=== PATIENT | female | born 1945 | race Caucasian/White ===

== ENCOUNTER 2016-10-09 06:39 | Day surgery (SDC) | payer MEDICARE, OTHER ==
[~2016-10-09] VITALS: Ht 162.6 cm; Wt 63.7 kg
[2016-11-16] MEDS ORDERED: DIVALPROEX SOD250 MG PO (18:53)
[2016-11-16] MEDS ORDERED: AMLODIPINE BESYL5 MG PO (18:53)
[2016-11-16] MEDS ORDERED: EFFEXOR XR150 MG PO (18:53)
[2016-11-16] MEDS ORDERED: MUCINEX600 MG PO (18:54)
[2016-11-16] MEDS ORDERED: POTASSIUM CHLO20 ME2 PO (18:54)
[2016-11-16] MEDS ORDERED: GABAPENTIN100 MG PO (18:54)
[2016-11-16] MEDS ORDERED: MIRALAX PACKET17 GM PO (18:54)
[2016-11-16] MEDS ORDERED: SENOKOT S1 TAB PO (18:55)
[2016-11-16] MEDS ORDERED: DUONEB DPS3 ML IH ×2 (18:55→18:56)
[2016-11-16] MEDS ORDERED: TYLENOL EXTRA500 M1 PO (18:55)
[2016-11-16] MEDS ORDERED: SEROQUEL25 MG PO (18:55)
[2016-11-16] MEDS ORDERED: DURAGESIC1 EAC1 TP (18:57)
[2016-11-16] MEDS ORDERED: LIDOPATCH1 EACH TP (18:59)
[2016-11-16] MEDS ORDERED: COMPAZINE10 MG PO (19:00)
[2016-11-16] MEDS ORDERED: BENADRYL-DPS25 MG PO (19:00)
[2016-11-16] MEDS ORDERED: OXY IR DPS5 MG PO (19:00)
[2016-11-16] MEDS ORDERED: MAALOX DPS30 ML PO (19:00)
[2016-11-16] MEDS ORDERED: XANAX DPS0.25 MG PO (19:01)
[2016-11-16] MEDS ORDERED: MAG-OX400 MG PO (19:02)
== END 2016-10-09 10:30 | disposition home or self-care (01) ==
LOC: RAD.S 06:39 → EDSTATUS 08:00 → RAD.S 10:30
PROC: 0BBG3ZX Excision of Left Upper Lung Lobe, Percutaneous Approach, Diagnostic (ICD-10-PCS; principal; 2016-10-09)
DX: R91.8 Other nonspecific abnormal finding of lung field (principal); G89.29 Other chronic pain; I10 Essential (primary) hypertension; K21.9 Gastro-esophageal reflux disease without esophagitis; E78.5 Hyperlipidemia, unspecified; M18.0 Bilateral primary osteoarthritis of first carpometacarpal joints; G25.81 Restless legs syndrome; F32.9 Major depressive disorder, single episode, unspecified; Z90.710 Acquired absence of both cervix and uterus; Z98.890 Other specified postprocedural states; Z88.0 Allergy status to penicillin; Z88.6 Allergy status to analgesic agent; Z79.899 Other long term (current) drug therapy; Z88.8 Allergy status to other drugs, medicaments and biological substances; Z88.3 Allergy status to other anti-infective agents

== ENCOUNTER → 2016-10-15 | Outpatient (CLI) | payer MEDICARE, OTHER ==
[~2016-10-15] MED LIST: AMLODIPINE BESYL5 MG PO; BENADRYL-DPS25 MG PO; COMPAZINE10 MG PO; DIVALPROEX SOD250 MG PO; DUONEB DPS3 ML IH; DURAGESIC1 EAC1 TP; EFFEXOR XR150 MG PO; GABAPENTIN100 MG PO; LIDOPATCH1 EACH TP; MAALOX DPS30 ML PO; MAG-OX400 MG PO; MIRALAX PACKET17 GM PO; MUCINEX600 MG PO; OXY IR DPS5 MG PO; POTASSIUM CHLO20 ME2 PO; SENOKOT S1 TAB PO; SEROQUEL25 MG PO; TYLENOL EXTRA500 M1 PO; XANAX DPS0.25 MG PO
== END | disposition home or self-care (01) ==
LOC: RESC 14:56
DX: R91.8 Other nonspecific abnormal finding of lung field (principal)

== ENCOUNTER 2016-10-19 06:26 | Emergency (ER) | payer MEDICARE, OTHER ==
--- NOTE | 2016-10-21 11:45 | ER ---
ADMIT: 10/19/2016 RM/LOC: ER [facility] MR#: [id number] 2620 [facility] [address] [place] [id number] MAHIN VIDES [address] [place], [place] [id number] Emergency Room Report SEX: F AGE: 71 : 1945 DATE: 10/19/2016 ADDENDUM: This is a 71-year-old white female with back pain, acute and also chronic. She also has been diagnosed with a lung mass of unknown etiology recently. CBC, chemistry looks okay. I think this is all basically pain control. I did speak with Dr. Bergeron. She does have a pulmonology appointment here in the near future to consider working this up as a needle biopsy had been performed recently, which I think was equivocal. At this time, she is on Nucynta, this is not helping her. I gave her Dilaudid, she tolerated this. We are going to discharge her home with Zofran 4 mg 1 p.o. q.6 #30 along with Dilaudid 2 mg a half to one p.o. q.6 #[address] Grace, her primary, and/or her chart writer in the near future as well. CONDITION ON DISCHARGE: Good. Sanjay Penaloza MD/ kutris JOB #: [id number] CC: Berto Rai MD, Attending Physician Min Grace MD, Family Physician
[2016-11-16] MEDS ORDERED: EFFEXOR XR150 MG PO (18:53)
[2016-11-16] MEDS ORDERED: AMLODIPINE BESYL5 MG PO (18:53)
[2016-11-16] MEDS ORDERED: DIVALPROEX SOD250 MG PO (18:53)
[2016-11-16] MEDS ORDERED: MUCINEX600 MG PO (18:54)
[2016-11-16] MEDS ORDERED: GABAPENTIN100 MG PO (18:54)
[2016-11-16] MEDS ORDERED: MIRALAX PACKET17 GM PO (18:54)
[2016-11-16] MEDS ORDERED: POTASSIUM CHLO20 ME2 PO (18:54)
[2016-11-16] MEDS ORDERED: SENOKOT S1 TAB PO (18:55)
[2016-11-16] MEDS ORDERED: SEROQUEL25 MG PO (18:55)
[2016-11-16] MEDS ORDERED: TYLENOL EXTRA500 M1 PO (18:55)
[2016-11-16] MEDS ORDERED: DUONEB DPS3 ML IH ×2 (18:55→18:56)
[2016-11-16] MEDS ORDERED: DURAGESIC1 EAC1 TP (18:57)
[2016-11-16] MEDS ORDERED: LIDOPATCH1 EACH TP (18:59)
[2016-11-16] MEDS ORDERED: MAALOX DPS30 ML PO (19:00)
[2016-11-16] MEDS ORDERED: COMPAZINE10 MG PO (19:00)
[2016-11-16] MEDS ORDERED: BENADRYL-DPS25 MG PO (19:00)
[2016-11-16] MEDS ORDERED: OXY IR DPS5 MG PO (19:00)
[2016-11-16] MEDS ORDERED: XANAX DPS0.25 MG PO (19:01)
[2016-11-16] MEDS ORDERED: MAG-OX400 MG PO (19:02)
== END 2016-10-19 09:40 | disposition home or self-care (01) ==
LOC: ER 06:26
DX: M54.9 Dorsalgia, unspecified (principal); G89.29 Other chronic pain; R91.8 Other nonspecific abnormal finding of lung field; I10 Essential (primary) hypertension; E78.5 Hyperlipidemia, unspecified; F17.210 Nicotine dependence, cigarettes, uncomplicated; Z88.0 Allergy status to penicillin; Z88.5 Allergy status to narcotic agent; Z88.6 Allergy status to analgesic agent; Z88.8 Allergy status to other drugs, medicaments and biological substances

== ENCOUNTER 2016-10-28 14:41 | Inpatient (IN) | payer MEDICARE, OTHER ==
[~2016-10-28] VITALS: Ht 162.6 cm; Wt 58.4 kg
--- NOTE | ~2016-10-28 | CO ---
ADMIT: 10/28/2016 RM/LOC: 405 [facility] MR#: [id number] 2620 [facility] [address] [place], [place] [address] MAIHN VIDES [address] [place], [place] [address] Consultation SEX: F AGE: 71 : 1945 DATE OF CONSULTATION: 11/03/2016 ATTENDING PHYSICIAN: Min Grace CONSULTING PHYSICIAN: Michelle Todd MD REASON FOR CONSULTATION: Pain management evaluation. HISTORY: Mrs. Vides is a 71-year-old patient, who I have been seen in the pain clinic for the past 3 years. She has chronic low back pain with occasional leg radiculopathy. Mrs. Vides has undergone a variety of interventional procedures including SI joint injections, lumbar facet injections followed by lumbar rhizotomy procedure as well as lumbar epidurals. The injections have provided her with variable amounts of relief, but none have been long lasting. She has been struggling for quite some time with chronic low back pain. Recently, Mrs. Vides was found to have a lung mass. 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 Prior to admission, she was having a great deal of pain, not eating well, and was brought in finally when her son found her curled up in the position at home. Since admission on the 28 October, Mrs. Vides has had her work up completed. She was initially on IV opioids, but currently is on a transdermal fentanyl patch at 25 mcg/hour supplemented with p.o. oxycodone at 10 mg q.4 hours. I was asked to see her for other recommendations regarding pain management. PAST MEDICAL HISTORY: Mrs. Vides has been a long time smoker. She has had her chronic back pain as well as history of hypertension, hyperlipidemia, osteoporosis and depression. Added to that is her recent diagnosis of small cell carcinoma of the lung. PAST SURGICAL HISTORY: Abdominal hysterectomy, cervical laminectomy, lung biopsy. ALLERGIES: INCLUDE ASPIRIN, IBUPROFEN, PENICILLIN, CODEINE, ROSUVASTATIN, AND SIMVASTATIN. HOME MEDICATIONS: Mrs. Vides was taking Dilaudid for pain control at home. She was also on: 1. Depakote. 2. Atorvastatin. 3. Atenolol. 4. Amlodipine. REVIEW OF SYSTEMS: Other than her smoking history, it has been noncontributory. PHYSICAL EXAMINATION: GENERAL: Mrs. Vides is alert and oriented in her ADMIT: 10/28/2016 RM/LOC: 405 [facility] MR#: [id number] [address] [address] JALIL VIDESJAMAL Shea [address] [place] [address] Consultation SEX: F AGE: 71 : 1945 hospital room today. She is ambulatory in the room and in no particular distress. She does complain of some left-sided rib pain. VITAL SIGNS: Stable. She is afebrile. BACK: On exam, there is no tenderness in the lumbar spine area currently. She does have fairly exquisite point tenderness over the lower ribs on the left. LUNGS: Clear. HEART: Regular rate and rhythm. ABDOMEN: Soft and nontender. ASSESSMENT: This 71-year-old female with chronic low back pain times several years. Recent diagnosis of small cell carcinoma of the lung. PLAN: I agree with the current management. It seems to be working fairly well. I would continue fentanyl at 25 mcg/hour and titrate upward as necessary. OxyIR should work well for breakthrough pain. Consider titrating the dose of gabapentin upwards to 0468-5386 mg per day as tolerated. I would be happy to manage her pain medications, but will defer that decision to Dr. Min Grace. I plan to see Mrs. Vides in the clinic in 3-4 weeks. I am going to have her daughter stop by my clinic and pear picker literature on the Medtronicen[employer] intrathecal drug infusion system (pain pump). Michelle Todd MD/ kurtis JOB #: [id number] CC: Min Grace, Attending Physician Min Grace, Family Physician
--- NOTE | ~2016-10-28 | ECH ---
Transthoracic Echocardiography Report (TTE) Demographics Patient Name MAHIN VIDES Date of Study 10/29/2016 Patient Number [id number] Visit Number [id number] Date of 1945 Room Number 405 Accession Number [id number] Gender Female Age 71 year(s) Referring Elyssa Crawford Containers Sales Representative Jigna Bacon [facility] Physician Physician Interpreting King Ford Boothe MD Edging Supervisor Physician Supervising Ordering Physician Elyssa Crawford MD, MD/P Nurse Stress Dock Operator Conclusions Summary Technically fair exam. The estimated left ventricular ejection fraction is 60-65%. Mild left ventricular hypertrophy. Diastolic assessment reveals Grade I diastolic dysfunction. Mild tricuspid regurgitation by color Doppler. Estimated pulmonary pressures within normal limits. Small pericardial effusion. The ascending aorta appears mildly dilated. The maximum diameter measures 3.4 cm. Procedure Type of Study TTE procedure:Echo Complete SF. Procedure Date Date: 10/29/2016 Start: 03:48 PM Technical Quality: Fair due to body habitus. Indications:Pericardial effusion. Appropriate Use Criteria: 9 Height: 64 inches Weight: 134 pounds BSA: 1.65 m Rhythm: Within normal limits HR: 66 bpm BP: 135/72 mmHg M-Mode/2D Measurements LV Diastolic Dimension: 5.08 cm LV Systolic Dimension: 2.14 cm LV Septum Diastolic: 1.01 cm LV PW Diastolic: 1.12 cm AO Root Dimension: 2.64 cm Cardiac Output: 3.28 l/min LA Dimension: 4.12 cm Cardiac Index: 1.99 l/min*m RV Diastolic Dimension: 3.03 cm LA volume index: 24 ml/m LVOT: 1.56 cm LVOT VTI: 26 cm RV Base: 3.5 cm LV Stroke volume: 49.67 ml RV Mid: 2.4 cm LV Stroke volume index: 30.1 ml/m RV Length: 6.1 cm TAPSE: 2.5 cm TDI-S': 17 cm/s Doppler Measurements AV Peak Velocity: 1.59 m/s MV Peak E-Wave: 0.82 m/s AV Peak Gradient: 10.11 mmHg MV Peak A-Wave: 0.94 m/s AV Mean Gradient: 4.9 mmHg MV E/A Ratio: 0.87 LVOT Peak Velocity: 1.05 m/s AV Area (Continuity):1.27 cm MV Deceleration Time: 190 msec TR Velocity:2.22 m/s PV Peak Velocity: 0.99 m/s TR Gradient:19.71 mmHg PV Peak Gradient: 3.92 mmHg Estimated RAP:5 mmHg Estimated PASP: 24.71 mmHg Estimated RVSP: 25 mmHg RA Area: 16.02 cm Findings Left Ventricle The left ventricle is normal in size . Mild left ventricular hypertrophy. Diastolic assessment reveals Grade I diastolic dysfunction. Right Ventricle Normal right ventricle structure and function. Left Atrium Normal left atrial size. Right Atrium Normal right atrial size. Mitral Valve Normal mitral valve structure and function. Aortic Valve Normal aortic valve structure and function. Tricuspid Valve Normal tricuspid valve structure and function. Mild tricuspid regurgitation by color Doppler. Estimated pulmonary pressures within normal limits. Pulmonic Valve Normal pulmonic valve structure and function. Pericardial Effusion Small pericardial effusion. Miscellaneous The ascending aorta appears mildly dilated. The maximum diameter measures 3.4 cm. Signature
--- NOTE | 2016-10-30 14:00 | ER ---
ADMIT: 10/28/2016 RM/LOC: 405 [facility] MR#: [id number] 2620 [facility] [address] [place], [place] [address] PEEWEE MAHIN Shea [address] [place], [place] [address] Emergency Room Report SEX: F AGE: 71 : 1945 DATE: 10/28/2016 See T-sheet for complete H and P. ADDENDUM: A 71-year-old female, comes in complaining of progressively worsening pain. Over the past month to month and a half, she has been worked up for this pulmonary mass. She has had CAT scans done and has had a biopsy done and apparently, the biopsy did not show any cancerous cells per the patient's family. She has been seen in the ER previously for pain and has been on oral Dilaudid and that is not working at this point, and she is extremely uncomfortable, especially over the past 2 days. She has not been eating much of anything for the past 5 days but has been drinking fluids. Workup in the ER, got a CBC which showed white count of 11.4. Chemistries are unremarkable other than low potassium. INR was 1.21. Due to the fact there is some remote history, stating that she has had some sort of tear in aorta with this back pain and abdominal pain, I did not go ahead and do a CT chest abdomen and pelvis dissection study. It did not show any dissection or aneurysm but we did see progression of the pulmonary mass which is larger than the study was done approximately a month ago. There is also a new interval development of pericardial and pleural effusions. The patient did require IV Dilaudid and Ativan to help control her pain while in the Emergency Department. She is feeling much better with that but at this point, I did not believe she is stable to go home. I spoke to Dr. Bergeron as he is covering for the patient's primary care physician, Dr. Grace. The patient will be admitted with diagnoses of: 1. Lung mass. 2. Back pain. 3. Dementia. 4. Hypokalemia. 5. Pericardial effusion. 6. Pulmonary effusion. Berto Rai MD/ kurtis JOB #: [id number] CC: Min Grace MD, Attending Physician Min Grace MD, Family Physician
--- NOTE | 2016-11-02 08:52 | HP ---
ADMIT: 10/28/2016 RM/LOC: 405 [facility] MR#: [id number] 2620 [facility] [address] [place], [place] [address] JALIL VIDESANETTE Monse [address] [place] [address] History and Physical SEX: F AGE: 71 : 1945 DATE OF SERVICE: 10/28/2016 HISTORY OF PRESENT ILLNESS: The patient was very drowsy upon my exam, so most of the history was obtained from her daughters, who are at bedside. This is a 71-year-old female with a history of hypertension, hyperlipidemia, depression, and tobacco abuse, who was noted to have a lung mass in her left lung about a month ago and underwent a biopsy of this, which was consistent with dysplasia. Since then, she has been trying to get set up with Pulmonology to possibly have a different biopsy completed. The patient's daughters report the patient has been having worsening pain since all of this started. She has oral Dilaudid, which had been working okay until today. She has been taking it roughly every 6 hours while awake, per her daughters, but will only take it twice a day as she is sleeping most of the day. She apparently has been drinking water, but has been eating hardly anything for the past week or so. They suspect she has been losing weight. They report the patient mainly complains of mid back pain that will sometimes involve her shoulder as well. They report no other changes. Apparently, the patient has been having regular bowel movements. She has some urinary leakage that recurred after her mesh implant was unsuccessful, but family reports this is not new. She has not been complaining of any dysuria or increased urinary frequency. No fevers or chills. She does have a chronic cough and reports this is unchanged. Daughters report she quit smoking 3 days ago. They report that she has not complained of anything else other than her back pain. They report when her pain is severe, she is in obvious distress and is moaning and is writhing in pain. They report that the pain medicine helped significantly as she is now resting comfortably. PAST MEDICAL HISTORY: 1. Lung mass. 2. 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 3. Tobacco abuse. 4. Chronic pain. 5. Hypertension. 6. Hyperlipidemia. 7. Vitamin D deficiency. 8. Osteoporosis. 9. Depression. PAST SURGICAL HISTORY: 1. Cervical laminectomy. 2. Abdominal hysterectomy. 3. Vaginal mesh implantation. 4. Lung biopsy in September 2016. ALLERGIES: ASPIRIN, IBUPROFEN, PENICILLIN, CODEINE, ROSUVASTATIN, AND SIMVASTATIN. HOME MEDICATIONS: ADMIT: 10/28/2016 RM/LOC: 405 [facility] MR#: [id number] [address] [address] MAHIN VIDES [address] [place] [address] History and Physical SEX: F AGE: 71 : 1945 1. Amlodipine. 2. Atenolol. 3. Atorvastatin. 4. Depakote. 5. Ergocalciferol. 6. Dilaudid. FAMILY HISTORY: Diabetes in mother and sibling, melanoma in father, aneurysm of aorta in mother. SOCIAL HISTORY: Lives with her son, and her daughter will stay with her during the day while her son is at work. Quite smoking 3 days ago, was smoking about a half a pack a day for the last 2 to 3 months, prior to that, however, she had been smoking about a pack and a half day since age 18. REVIEW OF SYSTEMS: Unable to be obtained due to the patient's drowsiness. Partial review of systems was obtained from the patient's daughters, and all positives and negatives were elicited in the HPI above. PHYSICAL EXAMINATION: VITAL SIGNS: On presentation to the ER include blood pressure 141/66, respiratory rate of 16, heart rate of 91, and oxygen saturation of 96%; however, after pain controlled, blood pressure decreased to 100s to 110s/60s, and the patient was saturating well on 2 liters of O2, and heart rate in the 70s. GENERAL: The patient is drowsy and unable to provide history. HEENT: Extraocular movements are intact, mucous membranes moist, no scleral icterus. CARDIOVASCULAR: Heart sounds slightly decreased, but no murmurs noted. Regular rate and rhythm. No JVD noted. Distal pulses equal and +2. RESPIRATORY: Expiratory and inspiratory wheezing noted over bilateral lung granger. Breathing comfortably, no acute distress on 2 liters nasal cannula. ABDOMEN: Bowel sounds present, soft, nontender, nondistended. EXTREMITIES: No lower extremity edema noted. Pulses intact. NEUROLOGIC: The patient is moving all 4 extremities. PSYCH: Unable to assess the patient is very drowsy and does not awaken for a long period. LABORATORY DATA: White blood cell count 11.4, hemoglobin 12.4, and platelets 263. Creatinine 0.8, potassium 3.1, sodium 139, bicarbonate 29, glucose 107, total protein 2.6, otherwise AST 69, but other LFTs within normal limits. INR 1.2. IMAGING: CT abdomen and pelvis shows an enlarging left hilar lung mass that is now 6.2 x 4.3 cm, enlarged from 1 month ago. Notes mediastinal masses and a new left pleural effusion and pericardial effusion. No bony mets or liver metastasis are noted. Thoracic aortic aneurysm 3.6 cm, with no acute dissection noted. ADMIT: 10/28/2016 RM/LOC: 405 [facility] MR#: [id number] [address] [address] MAHIN VIDES [address] [place] [address] History and Physical SEX: F AGE: 71 : 1945 ASSESSMENT AND PLAN: A 71-year-old female with long history of tobacco abuse, admitted for pain control and suspected malignancy as she has had enlarging lung mass and now has new pleural and pericardial effusions. 1. Lung mass, very suspicious for malignancy. 2. Pleural effusion. 3. Pericardial effusion. Suspect related to likely malignancy. The patient is hemodynamically stable now. We will get TTE in the morning to evaluate pericardial effusion. Consult IR for possible thoracentesis and fluid analysis for malignancy exudative versus transudative as well. 4. Back pain, severe. With the patient's other issues, pain is very suspicious for malignancy, however, CT scan did not show any bony mets. We will give IV Dilaudid overnight and wait for the outcome of possible thoracentesis. 5. Tobacco abuse. We will give nicotine patch while inpatient. 6. Hypokalemia. Replaced potassium in the ER, we will monitor. 7. Aortic aneurysm, no dissection noted. monitor. 8. Leukocytosis. Suspect may be due to volume contraction versus stress response as the patient has no other clinical symptoms or signs of infection. No pneumonia noted on CT scan. 9. Hypertension. After pain controlled, the patient's blood pressure has been adequate, and the patient's daughters report that she has not taken her blood pressure meds, so we will continue to hold. 10. Depression. Continue venlafaxine and monitor. Deep venous thrombosis prophylaxis: We will hold DVT prophylaxis due to likely thoracentesis tomorrow, but we will do SCDs and compression stockings. Full code. N.p.o. at midnight. Neha Nichols MD / Sanjay Bergeron MD / chuckl JOB #: [id number] CC: Min Grace, Attending Physician Min Grace, Family Physician
--- NOTE | 2016-11-05 10:29 | CO ---
ADMIT: 10/28/2016 RM/LOC: 405 [facility] MR#: [id number] 2620 [facility] [address] [place], [place] [address] MAHIN VIDES [address] [place] [address] Consultation SEX: F AGE: 71 : 1945 DATE OF CONSULTATION: 10/29/2016 ATTENDING PHYSICIAN: Min Grace CONSULTING PHYSICIAN: Sebastian Brewer MD HISTORY OF PRESENT ILLNESS: The history obtained from discussion with the patient's daughters, granddaughter, and also from review of the hospital note. This lady has been admitted here on 10/28/2016. She is 71. She used work in a [employer], retired. She has a history of hypertension, hyperlipidemia, depression, and longstanding history of tobacco use, which she is trying to wean herself off. She has been noted to have a lung mass in her left lung, which was approached through a CT-guided biopsy showing dysplasia that was last month. She was due to be seen in [place] by parts sales advisor 2 weeks ago, but that did not materialize. She has been having a lot of pain over her right side, and she has been on Dilaudid. She has not been eating well, and she has not been drinking well, and she has lost weight and staying mostly in bed. According to the daughters, her mental status has changed, she is confused and answers inappropriately. She has cut down on her smoking. She does moan. She does take the pain medications from time to time. The diagnosis that she has are lung mass, aortic aneurysm, which has been reported as chronic old dissecting, tobacco abuse, chronic pain, hypertension, hyperlipidemia, vitamin D deficiency, osteoporosis, and depression. She has had cervical laminectomy, abdominal hysterectomy, vaginal mesh implantation, and biopsy of the left lung mass in 2016, which is reportedly inconclusive. ALLERGIES: SHE HAS BEEN ALLERGIC TO ASPIRIN, IBUPROFEN, PENICILLIN, CODEINE, ROSUVASTATIN, AND SIMVASTATIN. SOCIAL HISTORY: She lives at home with her son. HOME MEDICATIONS: 1. Amlodipine. 2. Atenolol. 3. Atorvastatin. 4. Depakote. 5. Ergocalciferol. 6. Dilaudid. FAMILY HISTORY: Mother diabetic. History of melanoma in father. Aneurysm of the aorta in mother. PHYSICAL EXAMINATION: GENERAL: She appeared pleasant, but she answers erratically. No obvious distress. She was on oxygen, but was taking it off. On oxygen, her saturation was 94%. EXTREMITIES: There is no clubbing. There was no edema. She does have symmetrical strength at least in the upper extremities. LUNGS: She has rhonchi bilaterally. Diminished breath sounds on the left chest. ADMIT: 10/28/2016 RM/LOC: 405 [facility] MR#: [id number] [address] [address] MAHIN VIDES [facility] [place] [address] Consultation SEX: F AGE: 71 : 1945 HEART: No heart murmur. BREASTS: Normal. There was no organomegaly. LABORATORY DATA: Her laboratory investigation showed a sodium of 139, potassium of 3.1, bicarbonate 29, glucose 107, and total protein 2.6. White count 11.4, hemoglobin 12.4, and platelet 263. The CT abdomen and pelvis done, she has 6.2 cm x 4.3 enlarged mass in her left hilum with pleural and pericardial effusion. Mediastinal involvement is seen. Thoracic aortic aneurysm 3.6 without acute dissection. I have reviewed the CT scans myself and the lab impression is left hilar mass with history of hemoptysis most likely endobronchial involvement with pleural and pericardial effusion. Confusion rule out brain metastasis. Her sodium is normal, which is against the possibility of inappropriate ADH secretion. She has chronic obstructive pulmonary disease, long tobacco history, and she is due for an MRI of the spine. I will include the MRI of the brain as well. She is due for a pleural effusion taping today. I would like to get a rapid cytology. If the cytology is positive that concludes the amount of investigation necessary if we find the brain MRI is also positive. Should there be a need for diagnosis, a bronchoscopy with biopsy can be planned for tomorrow that will be needed only if she is negative on pleural fluid cytology. Of course, the pleural fluid could be because of the attempted CT- guided biopsy done last month in which case of course we cannot expect a positive cytology. Discussed the risk of bronchoscopy, particularly the risk of bleeding, and the patient seems to understand and agrees so were the 2 daughters. In the meantime, she is getting nebulized treatment, I will give her some steroid and put on some azithromycin because of her wheezing and rhonchi, which could be because of COPD. If necessary, the bronchoscopy will be done tomorrow with biopsy. Sebastian Brewer MD/ kurtis JOB #: [id number] CC: Min Grace, Attending Physician Min Grace, Family Physician Min Grace MD
[2016-11-16] MEDS ORDERED: AMLODIPINE BESYL5 MG PO (18:53)
[2016-11-16] MEDS ORDERED: DIVALPROEX SOD250 MG PO (18:53)
[2016-11-16] MEDS ORDERED: EFFEXOR XR150 MG PO (18:53)
[2016-11-16] MEDS ORDERED: MIRALAX PACKET17 GM PO (18:54)
[2016-11-16] MEDS ORDERED: POTASSIUM CHLO20 ME2 PO (18:54)
[2016-11-16] MEDS ORDERED: MUCINEX600 MG PO (18:54)
[2016-11-16] MEDS ORDERED: GABAPENTIN100 MG PO (18:54)
[2016-11-16] MEDS ORDERED: TYLENOL EXTRA500 M1 PO (18:55)
[2016-11-16] MEDS ORDERED: SEROQUEL25 MG PO (18:55)
[2016-11-16] MEDS ORDERED: SENOKOT S1 TAB PO (18:55)
[2016-11-16] MEDS ORDERED: DUONEB DPS3 ML IH ×2 (18:55→18:56)
[2016-11-16] MEDS ORDERED: DURAGESIC1 EAC1 TP (18:57)
[2016-11-16] MEDS ORDERED: LIDOPATCH1 EACH TP (18:59)
[2016-11-16] MEDS ORDERED: COMPAZINE10 MG PO (19:00)
[2016-11-16] MEDS ORDERED: MAALOX DPS30 ML PO (19:00)
[2016-11-16] MEDS ORDERED: BENADRYL-DPS25 MG PO (19:00)
[2016-11-16] MEDS ORDERED: OXY IR DPS5 MG PO (19:00)
[2016-11-16] MEDS ORDERED: XANAX DPS0.25 MG PO (19:01)
[2016-11-16] MEDS ORDERED: MAG-OX400 MG PO (19:02)
--- NOTE | 2016-11-22 18:23 | OR ---
ADMIT: 10/28/2016 RM/LOC: 405 [facility] MR#: [id number] [id number] [facility] [address] [place], [place] [address] MAHIN VIDES [address] [place], [place] [address] Operative/Delivery Room Report SEX: F AGE: 71 : 1945 SURGERY DATE: 11/06/2016 SURGEON: Michelle Todd MD PROCEDURE: Intrathecal morphine trial. PREOPERATIVE DIAGNOSES: 1. 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 2. Chronic pain due to cancer. POSTOPERATIVE DIAGNOSES: 1. 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 2. Chronic pain due to cancer. NARRATIVE: Mrs. Vides is a 71-year-old patient, who I see in the Pain Clinic here in [place]. She was recently admitted to the hospital and diagnosed with small cell carcinoma of the lung. She has spinal metastases and is having uncontrolled pain. The plan is to do an intrathecal morphine trial to determine her tolerance for intrathecal opioids in anticipation of intrathecal pain pump implant. I discussed the procedure at length with Mrs. Vides and her daughters. I explained the objective was to inject morphine into the intrathecal space and observe for effectiveness and also to observe for potential side effects. They understand and their questions were answered. A consent was signed. Mrs. Vides was taken to the radiology suite where she was place prone on a fluoroscopy table. Her back was prepped and draped in usual sterile fashion. A 1% lidocaine was injected into the skin overlying the L3-4 interlaminar window as identified by fluoroscopy. A 22-gauge 3-1/2-inch spinal needle was advanced using fluoroscopic guidance to the intrathecal space at the L3-4 level. There was clear return of CSF and a stylet was removed from the needle. No paresthesia or bleeding was noted. A 0.5 mg of preservative free morphine was injected into the intrathecal space through the spinal needle and the spinal needle was removed. A bandage was applied at the injection site. Mrs. Vides was taken back to her room in stable condition. I am going to have Mrs. Vides observed on end-tidal CO2 and telemetry overnight to observe for delayed respiratory depression. Providing she has noticeable pain relief and no side effects, I plan to schedule Mrs. Vides for an intrathecal pump implant on November 08. Michelle Todd MD/ kurtis JOB #: [id number] CC: Min Grace, Attending Physician ADMIT: 10/28/2016 RM/LOC: 405 [facility] MR#: [id number] [address] [address] [address] [place] [address] Operative/Delivery Room Report SEX: F AGE: 71 : 1945 Min Grace, Family Physician
--- NOTE | 2016-11-22 18:23 | OR ---
ADMIT: 10/28/2016 RM/LOC: 509 [facility] MR#: [id number] 2620 [facility] [address] [place] [address] MAHIN VIDES [address] [place] [address] Operative/Delivery Room Report SEX: F AGE: 71 : 1945 SURGERY DATE: 11/14/2016 SURGEON: Michelle Todd MD PROCEDURE: Implantation of Medtronic intrathecal drug infusion system (pain pump). PREOPERATIVE DIAGNOSES: 1. Small cell carcinoma of the lung. 2. Chronic pain syndrome. 3. Pain secondary to neoplasm. POSTOPERATIVE DIAGNOSES: 1. Small cell carcinoma of the lung. 2. Chronic pain syndrome. 3. Pain secondary to neoplasm. COAL MILL OPERATOR: None. ESTIMATED BLOOD LOSS: Less than 20 mL. FLUOROSCOPY TIME: See Radiology records. ANESTHESIA: General endotracheal anesthesia by Yamil Huggins CRNA. NARRATIVE: Ms. Vides is a 71-year-old patient, who I have seen in the past in the pain clinic. 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 Mahin has been experiencing a great deal of pain associated with her recent diagnosis. On November 06, 2016, I performed an intrathecal morphine trial. I injected 0.5 mg of intrathecal morphine and Mahin tolerated that well. Had made a significant difference in her overall level of pain. She is here at [facility] today (inpatient) for implantation of a pain pump. I explained the procedure to Mrs. Vides and her daughters in her hospital room following the intrathecal trial. The questions were answered. Ms. Vides signed a consent for the procedure today, and she was given 2 g of Ancef preoperatively. PROCEDURE IN DETAIL: Ms. Vides was taken to the operating room, where she was placed prone on the operating room table. Her back and left flank were prepped and draped in the usual sterile fashion. Fluoroscopy was used to identify the interlaminar windows overlying the L3-4 interspace. A midline incision was made and sharp and blunt dissection was used to dissect down to the supraspinous fascia. A 20 gauge 4-inch Tuohy epidural needle was then advanced under fluoroscopic guidance and the tip entered the intrathecal space through the L3-4 interlaminar window. There was vigorous flow of CSF when the stylet was removed from the needle. No paresthesia or bleeding was noted. A [employer] intrathecal catheter was passed through the needle and observed under fluoroscopy until the tip reached the level of the T7-8 thoracic interspace. The stylet was removed along with the needle. An anchor was placed over the ADMIT: 10/28/2016 RM/LOC: 509 [facility] MR#: [id number] [address] [address] MAHIN VIDES [address] [place] [address] Operative/Delivery Room Report SEX: F AGE: 71 : 1945 catheter and sutured in the depth of the wound with 2-0 silk suture. A tunneling device was then used to tunnel from the back incision to a stab wound in the left flank. The catheter was passed through the tunneling device and the tunneling device was removed distally. The catheter was sutured closed at the tip with 2-0 silk suture. It was then coiled up under an Op-Site dressing in the left flank. The back incision was then irrigated with antibiotic solution and closed in 2 layers with 2-0 and 3-0 Vicryl. The skin was approximated with skin yashira. The drapes were removed. The patient was repositioned supine on her transport cart with a blanket roll underneath her left hip. The left abdominal wall and left flank were then again prepped and draped in the usual sterile fashion. An incision was made in the left mid abdominal wall. Sharp dissection along with electrocautery was used to dissect down to the fascia overlying the muscle. Blunt dissection was used to create a pocket sufficient to accept the Medtronic's intrathecal pump. A tunneling device was then used to tunnel from the stab wound in the left flank to the pump pocket in the left mid abdomen. The catheter was then advanced through the tunneling device, and the tunneling device was removed. Connecting hardware was used to connect the catheter to the pump. The pump pocket was irrigated with antibiotic solution. The excess catheter was coiled up underneath the pump, and the pump was placed into the pocket and sutured to the fascia overlying the muscle with a 2-0 silk suture. The pump pocket was then closed in 2 layers with 2-0 and 3-0 Vicryl. The skin was approximated with skin yashira. Sterile dressings were applied. The patient was taken to the recovery room in stable condition. She will be returned to her room here in the hospital. I filled her pump intraoperatively with morphine 12.5 mg/mL and started her out at a rate of 0.7 mg per 24 hours. I will make adjustments as needed to facilitate good pain control in Ms. Vides. After discharge, I will see her in the office for wound check and staple removal. Michelle Todd MD/ kurtis JOB #: [id number] CC: Min Grace, Attending Physician Min Grace, Family Physician Pain Clinic
--- NOTE | 2016-11-23 12:16 | CO ---
ADMIT: 10/28/2016 RM/LOC: 405 [facility] MR#: [id number] [address] [address] JALIL VIDESAJMAL Shea [address] [place], [place] [address] Consultation SEX: F AGE: 71 : 1945 DATE OF CONSULTATION: 10/30/2016 ATTENDING PHYSICIAN: Min Grace CONSULTING PHYSICIAN: Shaun Lomeli MD REASON FOR CONSULTATION: Small cell lung cancer. HISTORY OF PRESENT ILLNESS: The patient is a 71-year-old female, who has had a recent discovery of a large hilar mass and initial biopsy was negative, but now has been on repeat biopsy, found to be a small cell cancer. To detail her history more specifically, she had undergone a CT scan of her chest in September 2016, worsening shortness of breath that showed a left hilar and subcarinal mass, measuring up to 4.9 cm in size with some mediastinal adenopathy, but no evidence of metastatic disease. 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 She has now been admitted to the hospital for functional decline and some confusion and underwent a repeat CT scan on 10/28/2016 showing this mass to be now 6.2 cm in size as well as some small satellite lesions and mediastinal adenopathy as well as new left-sided pleural effusion and possibly a pericardial effusion. She also had some spine MRIs performed that showed diffuse metastatic disease involving the bones. Brain MRI for her confusion showed no evidence of metastatic involvement. The patient underwent a thoracentesis on the left side on 10/29/2016 that shows small cell carcinoma of the lung, I am therefore being consulted. The patient provides me most of the history on my initial consultation. She is somewhat confused and therefore is a poor historian. I have subsequently talked with family members about her and they all state that she has certainly had a functional decline in the last two months, but really prior to that, she was fully independent and had really no restrictions or limitations. She herself describes really no focal pain. Her fatigue and weakness have slowly worsened in the last month or so. She has lost weight. They still all express an interest in being aggressive with her care. PAST MEDICAL HISTORY: History of hypertension, hyperlipidemia, vitamin D deficiency, chronic back pain, newly discovered lung cancer. ALLERGIES: REVIEWED IN THE CHART. MEDICATIONS: Reviewed in the chart. SOCIAL HISTORY: The patient lives independently. She has been a smoker. She has a very supportive family with five children. FAMILY HISTORY: She is not aware of any recurrent hereditary malignancies in the family. Her father had melanoma. REVIEW OF SYSTEMS: See HPI. Otherwise, complete review of systems was ADMIT: 10/28/2016 RM/LOC: 405 [facility] MR#: [id number] [address] [address] MAHIN VIDES [address] [place] [address] Consultation SEX: F AGE: 71 : 1945 obtained and was negative. PHYSICAL EXAMINATION: VITAL SIGNS: Temp is 98, pulse 72, respirations 16, blood pressure 128/78. GENERAL: She is in no acute distress. She is somewhat confused, although can answer questions appropriately. She is alert. HEENT: Mucous membranes are moist. No oral lesions are seen. Extraocular muscles are intact. Pupils are reactive and symmetrical. NECK: Without adenopathy or JVD. HEART: Regular rate and rhythm without murmur. LUNGS: Clear to auscultation bilaterally without any crackles or wheezes. ABDOMEN: Soft, nontender, and nondistended, with positive bowel sounds throughout. No organomegaly is appreciated. EXTREMITIES: No edema, rashes, lesions or adenopathy is seen. LABORATORY DATA: CBC and CMP are reviewed. Her recent CT scans and MRIs were also reviewed. IMPRESSION: 1. Extensive stage small cell lung cancer with a left hilar primary mass with mediastinal adenopathy. 2. Malignant left pleural effusion and metastatic bone involvement. 3. The patient has also ongoing delirium that is unexplained. RECOMMENDATIONS: I talked with the patient and her family at great length about her situation. She has what is considered incurable disease and I shared that with her and the family. Her hope for treatment would be to provide her some palliation and life prolongation. Her only treatment option relief for our initial strategy would be to use chemotherapy. We talked about potentially a role of radiation at some point to the chest, mass, and for prevention of brain metastases. I will plan to get her started fairly soon on her chemotherapy in the form of carboplatin and etoposide. She would like to talk this over more with her family over the next few days. We will tentatively plan to get her started next Saturday in my clinic. I appreciate this consultation. Shaun Lomeli MD/ kurtis JOB #: [id number] CC: Min Grace, Attending Physician Min Grace, Family Physician
--- NOTE | 2016-11-23 16:21 | DS ---
ADMIT: 10/28/2016 RM/LOC: 509 [facility] MR#: [id number] [address] [address] CHERISEKENYAJALILMAHIN L [address] [place] [address] Discharge Summary SEX: F AGE: 71 : 1945 ADMISSION DATE: 10/28/2016 DISCHARGE DATE: 11/15/2016 DISCHARGE DIAGNOSES: 1. Extensive stage small-cell carcinoma of the lung with noted extensive metastatic disease to the axial skeleton, pelvis as well as malignant pleural effusion, on current chemotherapy. 2. Cancer related pain, status post implantable intrathecal pain pump. 3. COPD (chronic obstructive pulmonary disease). 4. Hypoxic respiratory failure, requiring oxygen nocturnally. 5. Depression/anxiety. 6. Constipation. 7. Hypertension. 8. Hyperlipidemia. 9. Tobacco abuse. 10.Hypokalemia. 11.Hypomagnesemia, resolved. CONSULTATIONS: 1. Dr. Brewer with Pulmonary. 2. Dr. Lomeli with Oncology. 3. Dr. Michelle Todd with Pain Medicine. PROCEDURES: Implantation of an intrathecal pain pump on the 14 of November. REASON FOR ADMISSION: A 71-year-old female with extensive history who presented to the emergency room with worsening pain and shortness of breath with severe back pain. She was admitted to the hospital for pain control. Was previously also noted to have a lung mass that had not been able to be biopsied and as mentioned, she was admitted for further evaluation and treatment. For complete details, please see H and P dictated on the day of admission. HOSPITAL COURSE: At the time of admission, the patient was placed in a telemetry bed. She had undergone imaging that showed a pleural effusion. She was given pain control for her significant pain and pulmonology was consulted. She had undergone a thoracentesis that eventually did show a small cell carcinoma. So, pulmonology put a hold on any possible bronchoscopy or repeat interventional radiology CT-guided biopsy. I also need to add to her past medical history, hurt her discharge diagnoses as above. After we receive back that small-cell cancer diagnosis, Oncology was consulted. The patient continued to have significant amounts of pain and she underwent an MRI of the head as well as an MRI of the spine and the pelvis and was found to have diffuse skeletal metastatic disease. We started her on a fentanyl patch with p.r.n. oxycodone. We slowly added Neurontin and just were not able to get her pain under control. She was seen by Dr. Michelle Todd and plans were made for an intrathecal pain pump. She had a test dose done but then the implantable pain pump was done on the [address] Lomeli stopped by in consultation for her small-cell cancer and long discussion was undertaken and ADMIT: 10/28/2016 RM/LOC: 509 [facility] MR#: [id number] [address] [address] MAHIN VIDES [address] [place] [address] Discharge Summary SEX: F AGE: 71 : 1945 she was actually started on chemotherapy as an inpatient. She did very well with that. She did have some constipation and was put on a bowel regimen during her hospital stay that overall went very well. The patient had tolerated chemo as an inpatient well. Her bowels worked. As mentioned, we replaced electrolytes. She was seen by PT and OT mostly for ambulation. Did well with her fentanyl patch and did well after having her pain pump placed. Plans were made to send her home with her fentanyl patch and p.r.n. oxycodone with hopeful to taper it off as her adjustments were made to the intrathecal pump. The patient ambulated and ate just fine and was thought to be ready for discharge on 11/15. Discharge medications are found on her discharge medication list. Discharge activity is as tolerated. Discharge diet is as tolerated. She will have follow up with Dr. Michelle Todd as scheduled. She will follow up with Oncology as scheduled. She will follow up with me as scheduled, all within the next few weeks. Min Grace MD/ joelleng JOB #: [id number] CC: Min Grace MD, Attending Physician Min Grace MD, Family Physician
== END 2016-11-15 14:58 | disposition home health service (06) | DRG 166 ==
LOC: ER 14:41 → 4PCU 17:35 → 5MS 17:35 → 4PCU 11-05 08:42 → 5MS 11-07 13:23
PROVIDERS: ADMIT Internal Medicine
DX: C34.90 Malignant neoplasm of unspecified part of unspecified bronchus or lung (principal); J96.91 Respiratory failure, unspecified with hypoxia; J91.0 Malignant pleural effusion; D61.818 Other pancytopenia; I31.3 Pericardial effusion (noninflammatory); C79.51 Secondary malignant neoplasm of bone; E83.42 Hypomagnesemia; K59.00 Constipation, unspecified; F03.90 Unspecified dementia, unspecified severity, without behavioral disturbance, psychotic disturbance, mood disturbance, and anxiety; R41.0 Disorientation, unspecified; F41.9 Anxiety disorder, unspecified; M51.36 Other intervertebral disc degeneration, lumbar region; J44.9 Chronic obstructive pulmonary disease, unspecified; G89.3 Neoplasm related pain (acute) (chronic); M54.9 Dorsalgia, unspecified; M54.10 Radiculopathy, site unspecified; G89.29 Other chronic pain; E87.6 Hypokalemia; I10 Essential (primary) hypertension; E78.5 Hyperlipidemia, unspecified; F32.9 Major depressive disorder, single episode, unspecified; R32 Unspecified urinary incontinence; F17.210 Nicotine dependence, cigarettes, uncomplicated; I71.9 Aortic aneurysm of unspecified site, without rupture; M81.0 Age-related osteoporosis without current pathological fracture; Z96.0 Presence of urogenital implants